=== PATIENT | male | born 1955 | race Caucasian/White ===

== ENCOUNTER → 2017-01-12 | Outpatient (CLI) | payer OTHER | LOC: FIMAGING 11:29 | PROVIDERS: ATTEND Internal Medicine | DX: M19.071 Primary osteoarthritis, right ankle and foot (principal); M19.072 Primary osteoarthritis, left ankle and foot ==

== ENCOUNTER 2017-05-29 10:54 | Observation (INO) | payer OTHER ==
[~2017-05-29 10:54] MED LIST: ceFAZolin 2 GM/DEXTROSE 100 ML IV ONE
[2017-05-29] MEDS ORDERED: LIDOCAINE 1% 2 ML INJ ONE (12:10)
[2017-05-29] MEDS ORDERED: LR 1,000 ML IV ONE (12:13)
[2017-05-29] MEDS ORDERED: LIDOCAINE 1% 2 ML INJ ID PRN (12:13)
[2017-05-29] MEDS ORDERED: MIDAZOLAM 2 MG/2 ML VIAL ONE ×2 (12:59→14:37)
--- NOTE | 2017-05-29 13:04 | PDHPUP ---
History & Physical Update H&P update statement: This history and physical update is based on an assessment of the patient which was completed after admission or registration (within 24 hours), but prior to the surgery/procedure. heart rrr lungs clear
[2017-05-29] MEDS ORDERED: ROPIVACAINE HCL 150 MG/30 ML INJ ONE ×2 (13:07)
[2017-05-29] MEDS ORDERED: BUPIVACAINE 0.5% 30 ML SDV ONE (13:13)
[2017-05-29] MEDS ORDERED: PROPOFOL 200 MG/20 ML VIAL ONE ×2 (13:28→14:15)
[2017-05-29] MEDS ORDERED: LIDOCAINE 2% 5 ML SDV ONE (13:28)
[2017-05-29] MEDS ORDERED: fentaNYL 100 MCG/2 ML INJ ONE (13:39)
[2017-05-29] MEDS ORDERED: ONDANSETRON 4 MG/2 ML VIAL ONE (13:40)
[2017-05-29] MEDS ORDERED: DEXAMETHASONE 4 MG/ML VIAL ONE ×2 (13:40)
[2017-05-29] MEDS ORDERED: epHEDrine SULFATE 10 MG/ML SYR ONE (14:07)
[2017-05-29] MEDS ORDERED: RANITIDINE 50 MG/2 ML VIAL ONE (14:08)
[2017-05-29] MEDS ORDERED: HYDROmorphONE/DILAUDID 2 MG/ML INJ ONE (14:51)
[2017-05-29] MEDS ORDERED: ROPIVACAINE 0.2% 1,100 MG in PUMP SET 1 EA NB SCH (15:00)
--- NOTE | 2017-05-29 16:04 | POSTOPPROG ---
Post Op Note Date of Operation: 05/29/17 Surgeon: Lalo Reed Hydrometeorological Technician: Rosa Anesthesiologist: Shahram Anesthesia: GET(General Endotracheal) Pre-op Diagnosis: left ankle djd Post-op Diagnosis: same Indication: above Procedure: L TAA Findings: djd Inf/Abcess present in the surg proc area at time of surgery?: No EBL: 50-100
[2017-05-29] MEDS ORDERED: HYDROmorphONE/DILAUDID 2 MG/ML INJ IVP PRN (16:08)
[2017-05-29] MEDS ORDERED: ONDANSETRON 4 MG/2 ML VIAL IVP PRN (16:08)
--- NOTE | 2017-05-29 16:10 | POSTANESTH ---
Post Anesthetic Evaluation Cardiovascular Status: Normal, Stable Respiratory Status: Normal, Stable Level of Consciousness/Mental Status: Can Participate in Eval, Alert and Oriented Pain Control: Adequate, Prn Tx Ordered Nausea/Vomiting Control: Adequate, Prn Tx Ordered Complications Possibly Related to Anesthesia: None Noted
--- NOTE | 2017-05-29 17:13 | GOP ---
[f rep st] OPERATIVE REPORT DATE OF OPERATION: 05/29/2017 SURGEON: Lalo eRed MD ALTERATION TAILOR APPRENTICE: Mihir Lee SA. ANESTHESIA: General with indwelling popliteal block and single-shot saphenous. PREOPERATIVE DIAGNOSIS: Left ankle degenerative joint disease. POSTOPERATIVE DIAGNOSIS: Left ankle degenerative joint disease. PROCEDURE PERFORMED: 1. Left total ankle replacement. 2. Left tendo-Achilles lengthening. IMPLANTS: Magdaleno Talaris XT total ankle replacement, 3 tibia, 11 mm poly, 2 talus. FINDINGS: SPECIMENS: None. CONDITION: Stable. ESTIMATED BLOOD LOSS: 20 mL. INDICATIONS: This is a 62-year-old male with symptomatic ankle DJD. He tried and failed numerous y ears of conservative management and was having end-stage symptoms. We discussed risks and benefits of an injection, brace, ankle fusion and also a total ankle replacement. He elected for a total ank le replacement, as he desired to preserve motion and perform low impact activities. I counseled him on the risks and benefits of implant failure, need for revision, need for fusion, wo und complications, possibility of amputation, nerve problems, implant loosening, need for further ingram rgery, and he elected to proceed. Informed consent obtained after all questions answered. He was m arked preoperatively. DESCRIPTION OF PROCEDURE: He was taken to the operative suite. A block was administered per Anesth esia. He was given 2 g of Ancef. He was sterilely prepped and draped in the normal fashion. A rickey e-out was performed, verifying the site, side, and location by everyone on the team. The surgery was begun with an anterior approach to the ankle. I went between the EHL and tibia, pro tecting the SPN as well as the deep neurovascular bundle exposing this sharply, and significant syno vitis was debrided out of his ankle exposing the ankle widely. I removed small osteophytes and got the ankle exposed. I did release some of the deltoid medially as he was tight medially and loose la terally. We made a small incision over the tibial crest just below the tibial tubercle and placed a guide pin through this bicortically. We then placed a jig on this and brought this down to the ankle. We ch ecked this fluoroscopically and tightened this into position. I then placed the distal cutting jig for the talar implant and checked this fluoroscopically too bot h AP and laterally. I then checked the tibial block as well, the rotation and the gutters. I then tightened this down. I did check the talar cutting block again fluoroscopically. I pinned the talar cutting block into p lace, checked this fluoroscopically and cut the talus and removed this bone. I then placed the tibi al block on that and checked this fluoroscopically. I pinned this and then cut the tibial in both t he chamfer, sagittal cuts and the transverse cut. I then finished these cuts and removed the extra bone. I removed his os trigonum out to the posterior ankle. I debrided the medial lateral gutters, cleaned this out thoroughly and smoothed the edge of the talu s. I then placed trial implants. I selected an 11 mm poly, a 3 tibia and 2 talus. I cycled these into place. I checked this fluoroscopically. I pinned these into place. After pinning the talus, I removed the tibia. I prepared the verma out of the talus as well as the 2 holes. I then finished the prep of this after removing that component. I then prepared the tibia with the talus back in pl yamilet to prepare the keel holes sequentially and the big keel hole. I then thoroughly washed the ankle out. I malleted the talus into place and got a good press fit of this. I checked this fluoroscopically. I then put the poly onto the tibia using the device as giv en and then malleted this into place, achieving a good press fit. I bone grafted this. Then, at this point, I made the decision to perform a DEONDRE as he was still quite tight in dorsiflexio n. This was performed after a triple step cut. I did obtain more dorsiflexion. He was thoroughly irrigated. The tibial keel was bone grafted. He was closed with #1 Vicryl, 0 Ilir ryl, 2-0 Vicryl, 2-0 Monocryl, and Dermabond. He was placed in a splint and taken to the PACU in st able condition. COMPLICATIONS: None. DRAINS: None. /[id number]/MODL
[2017-05-29] MEDS: ceFAZolin 2 GM/DEXTROSE 100 ML IV SCH (21:08)
[2017-05-30] MEDS: ceFAZolin 2 GM/DEXTROSE 100 ML IV SCH (06:14)
[2017-05-30] MEDS: oxyCODONE IR 5 MG TAB PO PRN ×3 (06:18→12:50)
[2017-05-30 07:30] VITALS: RESP 14
[2017-05-30] MEDS ORDERED: ALLOPURINOL 300 MG TAB PO SCH (09:00)
[2017-05-30] MEDS ORDERED: LISINOPRIL 20 MG TAB PO SCH (09:00)
[2017-05-30] MEDS ORDERED: LABETALOL HCL 100 MG TAB PO SCH (09:00)
[2017-05-30] MEDS ORDERED: OMEGA-3 FATTY ACIDS 1,000 MG CAP PO SCH (09:00)
[2017-05-30] MEDS ORDERED: amLODIPine BESYLATE 5 MG TAB PO SCH (09:00)
[2017-05-30] MEDS ORDERED: CHOLECALCIFEROL VIT D3 1,000 UNITS TAB PO SCH (09:00)
[2017-05-30] MEDS ORDERED: ASPIRIN EC 81 MG TAB PO SCH (09:00)
[2017-05-30] MEDS ORDERED: GLUCOSAMINE/CHONDROITIN CAP PO SCH (09:00)
[2017-05-30 11:58] VITALS: BP 145/85; PULSE 70; TEMP 98.7; O2SAT 95
--- NOTE | 2017-05-30 12:42 | GDS ---
[f rep st] DISCHARGE SUMMARY REASON FOR HOSPITALIZATION: The patient was admitted after a left total ankle arthroplasty. Vipin pierce e able to control his pain overnight. He cleared therapy in the morning and was doing well. He stefanie l be to advance his diet, tolerated p.o. CONDITION ON DISCHARGE: Good. DIET ON DISCHARGE: Regular. ACTIVITY: Nonweightbearing left lower extremity. CONSULTING PHYSICIANS: None. SURGERIES: Left total ankle arthroplasty and tendo-Achilles lengthening. DISPOSITION: He was sent home and his previous home medications were restarted. Also given a presc ription for oxycodone for pain. He has a prescription for Ultram from my office as well as Pipedrive. He is also instructed to take an aspirin 325 mg for 2 weeks for DVT prophylaxis. He will then resu me his 81 mg aspirin. He has an appointment scheduled to see me on . He will call or come back to the hospital if he has any chest pain, shortness of breath, drainage, fever, other complicat ions or concerns. /[id number]/MODL
== END 2017-05-30 12:59 | disposition home or self-care (01) ==
LOC: OBSVTOIN 10:54 → F3N 10:54 → INTOOBSV 10:54 → F3N 16:40
PROVIDERS: ADMIT Orthopaedic Surgery; ATTEND Orthopaedic Surgery
PROC: BQ1G1ZZ Fluoroscopy of Right Ankle using Low Osmolar Contrast (ICD-10-PCS; principal; 2017-05-29 13:00)
PROC: 0LNS0ZZ Release Right Ankle Tendon, Open Approach (ICD-10-PCS; principal; 2017-05-29 13:00)
PROC: 0SRF0JZ Replacement of Right Ankle Joint with Synthetic Substitute, Open Approach (ICD-10-PCS; principal; 2017-05-29 13:00)
DX: M19.072 Primary osteoarthritis, left ankle and foot (principal); M19.031 Primary osteoarthritis, right wrist
CPT/HCPCS: 27702; 97116; 97161; 97165; G0378; J0690; J1100; J1170; J2250; J2405; J2704; J2780; J2795; J3010

== ENCOUNTER → 2017-09-30 | Outpatient (CLI) | payer OTHER | LOC: FCPNEURO 01:03 | PROVIDERS: ATTEND Physician Assistant Medical | DX: G47.33 Obstructive sleep apnea (adult) (pediatric) (principal); G47.61 Periodic limb movement disorder; G47.52 REM sleep behavior disorder ==

== ENCOUNTER → 2018-01-09 | Outpatient (CLI) | payer OTHER | LOC: FIMAGING 08:23 | DX: M51.36 Other intervertebral disc degeneration, lumbar region (principal) ==

== ENCOUNTER → 2018-01-09 | Outpatient (CLI) | payer OTHER | LOC: FIMAGING 08:13 | DX: M51.36 Other intervertebral disc degeneration, lumbar region (principal); M48.061 Spinal stenosis, lumbar region without neurogenic claudication ==

== ENCOUNTER 2018-01-18 12:08 | Day surgery (SDC) | payer OTHER ==
[2018-01-18] MEDS ORDERED: IOPAMIDOL (ISOVUE-M 300) 15 ML VIAL ONE (14:01)
[2018-01-18] MEDS ORDERED: LIDOCAINE 1% 300 MG/30 ML SDV ONE (14:01)
[2018-01-18] MEDS ORDERED: TRIAMCINOLONE ACETONIDE 200 MG/5 ML MDV IM ONE (14:01)
--- NOTE | 2018-01-18 14:02 | PDRADPN ---
Radiology Procedure Note Date of Procedure: 01/18/18 Radiologist: Chele Foster Anesthesia: Local (Specify) Pre-op Diagnosis: L4/5 disk protrusion Post-op Diagnosis: same Indication: LLE radiculopathy Procedure: interlaminar YVAN Finding(s): good epidurogram prior to injection of 80mg kenalog + 1mL lidocaine Inf/Abcess present in the surg proc area at time of surgery?: No EBL: Minimal Complications: none
== END 2018-01-18 14:34 | disposition home or self-care (01) ==
LOC: FIMAGING 12:08
PROVIDERS: ATTEND Radiology Diagnostic Radiology
PROC: 3E0S33Z Introduction of Anti-inflammatory into Epidural Space, Percutaneous Approach (ICD-10-PCS; principal; 2018-01-18)
PROC: 3E0S3BZ Introduction of Anesthetic Agent into Epidural Space, Percutaneous Approach (ICD-10-PCS; principal; 2018-01-18)
DX: M51.26 Other intervertebral disc displacement, lumbar region (principal); M54.16 Radiculopathy, lumbar region
CPT/HCPCS: J3301; Q9967

== ENCOUNTER 2018-02-15 11:51 | Day surgery (SDC) | payer OTHER ==
[2018-02-15] MEDS ORDERED: TRIAMCINOLONE ACETONIDE 200 MG/5 ML MDV IM ONE (13:50)
[2018-02-15] MEDS ORDERED: IOPAMIDOL (ISOVUE-M 300) 15 ML VIAL ONE (13:50)
[2018-02-15] MEDS ORDERED: LIDOCAINE 1% 300 MG/30 ML SDV ONE (13:50)
== END 2018-02-15 14:16 | disposition home or self-care (01) ==
LOC: FIMAGING 11:51
PROVIDERS: ATTEND Radiology Diagnostic Radiology
PROC: BR191ZZ Fluoroscopy of Lumbar Spine using Low Osmolar Contrast (ICD-10-PCS; principal; 2018-02-15)
PROC: 3E0S33Z Introduction of Anti-inflammatory into Epidural Space, Percutaneous Approach (ICD-10-PCS; principal; 2018-02-15)
PROC: 3E0S3BZ Introduction of Anesthetic Agent into Epidural Space, Percutaneous Approach (ICD-10-PCS; principal; 2018-02-15)
DX: M51.17 Intervertebral disc disorders with radiculopathy, lumbosacral region (principal)
CPT/HCPCS: J3301; Q9967

== ENCOUNTER 2018-03-06 10:17 | Day surgery (SDC) | payer OTHER ==
[2018-03-06] MEDS ORDERED: ACETAMINOPHEN 500 MG TAB PO ONE (10:26)
[2018-03-06] MEDS ORDERED: ceFAZolin 2 GM/SWFI 2 GM/20 ML SYR IVP ONE (10:26)
[2018-03-06] MEDS ORDERED: LIDOCAINE 1% 2 ML INJ ID PRN (10:47)
[2018-03-06] MEDS ORDERED: LR 1,000 ML IV ONE (10:47)
[2018-03-06] MEDS ORDERED: BUPIVACAINE 0.25% 30 ML SDV ONE (13:10)
[2018-03-06] MEDS ORDERED: SURGIFLO MATRIX KIT WITH THROMBIN 8 ML TP ONE (13:11)
[2018-03-06] MEDS ORDERED: THROMBIN (BOVINE) 5,000 UNIT VIAL TP ONE (13:11)
[2018-03-06] MEDS ORDERED: CHLORHEXIDINE GLUC HIBICLENS 118 ML BTL TP ONE (13:11)
[2018-03-06] MEDS ORDERED: GENTAMICIN SULFATE 80 MG/2 ML VIAL ONE (13:37)
--- NOTE | 2018-03-06 13:45 | PDANEPAE ---
ANE Past Medical History - Cardiovascular History Hx Hypertension: Yes Hx Arrhythmias: No Hx Chest Pain: No Hx Coronary Artery / Peripheral Vascular Disease: No Hx CHF / Valvular Disease: No Hx Palpitations: No Cardiovascular History Comment: HYPERLIPIDEMIA - Pulmonary History Hx COPD: No Hx Asthma/Reactive Airway Disease: No Hx Recent Upper Respiratory Infection: No Hx Oxygen in Use at Home: Yes O2 in Use at Home (L/minute): 2.5L Hx Sleep Apnea: Yes Sleep Apnea Screening Result - Last Documented: Positive Pulmonary History Comment: Sleep apnea doesn't use his CPAP. - Neurologic History Hx Cerebrovascular Accident: No Hx Seizures: No Hx Dementia: No Neurologic History Comment: chronic bilateral sciatica-multiple steroid inj. - Endocrine History Hx Diabetes: No Hypothyroid: No Hyperthyroid: No Obesity: yes, mild - Renal History Hx Renal Disorders: No - Liver History Hx Hepatic Disorders: No - Neurological & Psychiatric Hx Hx Neurological and Psychiatric Disorders: No Neurological / Psychiatric History Comment: hx depression - Cancer History Hx Cancer: No - Congenital Disorder History Hx Congenital Disorders: No - GI History GERD: no Hx Gastrointestinal Disorders: No Gastrointestinal History Comment: GERD. DIFFICULTY SWALLOWING. GASTRIC ULCER - Other Health History Other Health History: Gout, joint arthritis. - Chronic Pain History Chronic Pain: No - Surgical History Prior Surgeries: 10/10-R wrist. Scopes both shoulders. R knee scope. R ankle. Appendix. Ing. hernia. left ankle replacement,right TKA ANE Review of Systems Review of Systems: - Exercise capacity METS (RN): 4 METS ANE Patient History - Allergies Allergies/Adverse Reactions: No Known Allergies Allergy (Verified 03/01/18 14:28) - Home Medications Home Medications: Allopurinol [Allopurinol 300 MG (RX)] 09/19/12 [Last Taken 02/27/18] Aspirin EC [Aspirin EC 81 mg (*)] 08/26/15 [Last Taken 02/26/18] Cholecalciferol Vit D3 [Vitamin D3 2000 units] 08/26/15 [Last Taken 02/27/18] Glucosamine/Chondroitin [Glucosamine/Chondroitin (*)] 08/26/15 [Last Taken 12/16] Herbals/Supplements -Info Only 08/26/15 [Last Taken 02/27/18] Hydrochlorothiazide [HCTZ (*)] 08/26/15 [Last Taken 03/05/18 12:00] Labetalol HCl [Trandate 100 mg (*)] 05/23/17 [Last Taken 03/06/18 07:00] Lisinopril [Zestril 20 mg (*)] 05/23/17 [Last Taken 03/05/18 12:00] Rome-3 Fatty Acids [Fish Oil 1000 mg (*)] 05/23/17 [Last Taken 02/27/18] amLODIPine BESYLATE [Norvasc 5 mg (*)] 05/23/17 [Last Taken 03/06/18 07:00] celeCOXIB [Celebrex (*)] 05/23/17 [Last Taken 02/27/18] Atorvastatin Calcium 03/01/18 [Last Taken 03/06/18 07:00] oxyCODONE IR [Oxycodone Ir (*)] 03/01/18 [Last Taken 03/04/18] - NPO status NPO Since - Liquids (Date): 03/06/18 NPO Since - Liquids (Time): 07:00 NPO Since - Solids (Date): 03/05/18 NPO Since - Solids (Time): 21:00 - Anes Hx Anes Hx: no prior problems - Smoking Hx Smoking Status: Never smoked - Family Anes Hx Family Anes Hx: neg - N/A Family Hx Anesthesia Complications: none ANE Labs/Vital Signs - Vital Signs Blood Pressure: 132/82 Heart Rate: 63 Respiratory Rate: 16 O2 Sat (%): 96 Height: 175.26 cm Weight: 104.326 kg ANE Physical Exam - Airway Neck exam: FROM Mallampati Score: Class 2 Mouth exam: normal dental/mouth exam - Pulmonary Pulmonary: no respiratory distress, no rales or rhonchi, clear to auscultation - Cardiovascular Cardiovascular: regular rate and rhythym, no murmur, rub, or gallop - ASA Status ASA Status: III ANE Anesthesia Plan Anesthesia Plan: general endotracheal anesthesia Total IV Anesthesia: No
[2018-03-06] MEDS ORDERED: MIDAZOLAM 2 MG/2 ML VIAL IVP ONE (13:49)
[2018-03-06] MEDS ORDERED: fentaNYL 100 MCG/2 ML INJ ONE (13:54)
[2018-03-06] MEDS ORDERED: LIDOCAINE 2% 5 ML SDV ONE (13:56)
[2018-03-06] MEDS ORDERED: ROCURONIUM 50 MG/5 ML VIAL ONE (13:56)
[2018-03-06] MEDS ORDERED: PROPOFOL 200 MG/20 ML VIAL ONE (13:57)
[2018-03-06] MEDS ORDERED: REMIFENTANIL HCL 1 MG VIAL ONE (13:57)
[2018-03-06] MEDS ORDERED: PROPOFOL/EMULSION 500 MG/50 ML BOTTLE IV ONE (13:57)
--- NOTE | 2018-03-06 14:11 | PDHPUP ---
History & Physical Update H&P update statement: This history and physical update is based on an assessment of the patient which was completed after admission or registration (within 24 hours), but prior to the surgery/procedure. H&P update: H&P reviewed & patient examined, no change in patient's condition since H&P completed
[2018-03-06] MEDS ORDERED: epHEDrine SULFATE 10 MG/ML SYR ONE (14:53)
[2018-03-06] MEDS ORDERED: oxyCODONE IR 5 MG TAB PO PRN (15:11)
[2018-03-06] MEDS ORDERED: LR 500 ML IV PRN (15:11)
[2018-03-06] MEDS ORDERED: HYDROCODONE/APAP 5/325 TAB PO PRN (15:11)
[2018-03-06] MEDS ORDERED: PROMETHAZINE HCL 25 MG/ML INJ IVP PRN (15:11)
[2018-03-06] MEDS ORDERED: ACETAMINOPHEN 500 MG TAB PO PRN (15:11)
[2018-03-06] MEDS ORDERED: PHENYLEPHRINE HCL 100 MCG/ML SYR IVP PRN (15:11)
[2018-03-06] MEDS ORDERED: ONDANSETRON 4 MG/2 ML VIAL IVP PRN (15:11)
[2018-03-06] MEDS ORDERED: fentaNYL 100 MCG/2 ML INJ IVP PRN (15:11)
[2018-03-06] MEDS ORDERED: epHEDrine SULFATE 10 MG/ML SYR IVP PRN (15:11)
[2018-03-06] MEDS ORDERED: NALOXONE HCL 0.4 MG/ML INJ IVP PRN (15:11)
[2018-03-06] MEDS ORDERED: GLYCOPYRROLATE 0.2 MG/1 ML VIAL ONE ×2 (15:29)
[2018-03-06] MEDS ORDERED: NEOSTIGMINE METHYLSULFATE 10 MG/10 ML MDV ONE (15:29)
[2018-03-06] MEDS ORDERED: KETOROLAC 30 MG/1 ML SDV ONE (15:29)
--- NOTE | 2018-03-06 15:54 | POSTANESTH ---
Post Anesthetic Evaluation Cardiovascular Status: Normal, Stable Respiratory Status: Normal, Stable Level of Consciousness/Mental Status: Can Participate in Eval Pain Control: Adequate, Prn Tx Ordered Nausea/Vomiting Control: Adequate, Prn Tx Ordered Complications Possibly Related to Anesthesia: None Noted
--- NOTE | 2018-03-06 15:58 | GOP ---
[f rep st] OPERATIVE REPORT DATE OF OPERATION: 03/06/2018 SURGEON: Shari Kerr DO [employer] OPERATOR: Vivien Ram PA-C. PREOPERATIVE DIAGNOSIS: 1. L4-5 herniated disk. 2. Radiculopathy. 3. Spondylosis. POSTOPERATIVE DIAGNOSIS: 1. L4-5 herniated disk. 2. Radiculopathy. 3. Spondylosis. PROCEDURE PERFORMED: Left L4-5 microdiskectomy. FINDINGS: SPECIMENS: None. ESTIMATED BLOOD LOSS: 20 mL. INDICATIONS: This is a 63-year-old male with radiculopathy secondary to disk herniation superimposed with spondylosis at L4-5 with other multilevel spondylosis, who has failed conservative management a nd elected to move forward with a microdiskectomy as opposed to a fusion. DESCRIPTION OF PROCEDURE: He was identified and consented. Sites were marked. Brought to the opera ting room, anesthetized under general endotracheal tube anesthesia, rolled onto the OR bed with a Lawrence son frame. All pressure points were appropriately padded. His skin was cleansed with chlorhexidine. It should be noted that he had a mild sunburn. I did discuss with him increased risk of wound heal ing. However, there were no open lesions. He elected to move forward and understood these risks. I ncision was marked with an 18-gauge spinal needle on lateral x-ray. He was prepped and draped in the usual sterile fashion. Incision was anesthetized with 0.5% Marcaine with epinephrine. Incision was made a 10 blade. Hemostasis was obtained with Bovie and bipolar cautery, dissecting down onto the l aminae of 4-5, placed a Shadow-Line retractor, placed a Stout 4, marked the level, brought in the microscope. Using a high-speed drill, created a laminotomy at the L4-5 level on the left. Opening t he ligamentum flavum with a ball-tip probe, he did have exuberant ligament which was resected with 2 and 3 Kerrisons. We took an x-ray with a ball-tip probe in the epidural space and the foramen. We t hen retracted the nerve root medially with a nerve root retractor, opened the anulus with an 11 blade . We got immediate egress of 2 pretty sizable pieces of disk herniation. We then performed a genero us foraminotomy, explored the entire epidural space. There was no further significant disk bulge or disk herniation, and the nerve root was well decompressed. Neuro monitoring was stable. Meticulous hemostasis was obtained with FloSeal. We then copiously irrigated with gentamicin infused saline and removed the Shadow-Line retractor, removed the microscope, closed the fascia with 0 Vicryl pop-offs, subcutaneous layer 2-0 Vicryl pop-offs, cutaneous layer with 3-0 Vicryl pop-offs. Skin was closed w ith 4-0 Monocryl and Steri-Strips, dressed with gauze and Tegaderm. Patient tolerated procedure well . No complications. FLUIDS: 1300 mL of crystalloid. URINE OUTPUT: None. DRAINS: None. COMPLICATIONS: None. /[id number]/MODL
--- NOTE | 2018-03-06 16:03 | POSTOPPROG ---
Post Op Note Date of Operation: 03/06/18 Surgeon: Shari Kerr Business Continuity Planning Director: Vivien Ram PA-C Anesthesia: GET(General Endotracheal) Pre-op Diagnosis: Lumbar disc herniation Post-op Diagnosis: Lumbar disc herniation Procedure: left L4/5 microdiscectomy Inf/Abcess present in the surg proc area at time of surgery?: No Depth: Deep Incisional (Fascial) EBL: Minimal Plan Plan: 63 yo male s/p left L4/5 microdiscectomy - neuro checks - pain control - advance diet as tolerated - home today Exam Awake. Alert Following commands Strength full sensation intact
[2018-03-06 17:07] VITALS: BP 127/76
== END 2018-03-06 17:22 | disposition home or self-care (01) ==
LOC: FSGY 10:17
PROVIDERS: ATTEND Neurological Surgery
DX: M51.16 Intervertebral disc disorders with radiculopathy, lumbar region (principal); M47.816 Spondylosis without myelopathy or radiculopathy, lumbar region; I10 Essential (primary) hypertension; E78.5 Hyperlipidemia, unspecified; G47.33 Obstructive sleep apnea (adult) (pediatric); K21.9 Gastro-esophageal reflux disease without esophagitis; Z96.651 Presence of right artificial knee joint; Z96.662 Presence of left artificial ankle joint
CPT/HCPCS: J0171; J0690; J1580; J1885; J2250; J2704; J3010

== ENCOUNTER 2018-04-23 13:54 | Day surgery (SDC) | payer OTHER ==
[2018-04-23] MEDS ORDERED: TRIAMCINOLONE ACETONIDE 200 MG/5 ML MDV IM ONE (15:00)
[2018-04-23] MEDS ORDERED: LIDOCAINE 1% 300 MG/30 ML SDV ONE (16:03)
[2018-04-23] MEDS ORDERED: IOPAMIDOL (ISOVUE-300) 100 ML BTL ONE (16:03)
[2018-04-23] MEDS ORDERED: IOPAMIDOL (ISOVUE-M 300) 15 ML VIAL ONE (16:08)
== END 2018-04-23 15:54 | disposition home or self-care (01) ==
LOC: FIMAGING 13:54
PROVIDERS: ATTEND Physician Assistant Surgical
PROC: 3E0S3BZ Introduction of Anesthetic Agent into Epidural Space, Percutaneous Approach (ICD-10-PCS; principal; 2018-04-23)
PROC: 3E0S33Z Introduction of Anti-inflammatory into Epidural Space, Percutaneous Approach (ICD-10-PCS; principal; 2018-04-23)
DX: M54.16 Radiculopathy, lumbar region (principal)
CPT/HCPCS: J3301; Q9967

== ENCOUNTER → 2019-04-11 | Outpatient (CLI) | payer OTHER | LOC: FIMAGING 12:35 ==